=== PATIENT | male | born 1945 | race Caucasian/White ===

== ENCOUNTER 2020-10-18 08:00 | Outpatient (RCR) | payer MEDICARE, OTHER | END 2020-10-21 | disposition home or self-care (01) | PROVIDERS: ATTEND Nurse Practitioner Family | DX: R22.31 Localized swelling, mass and lump, right upper limb (principal); I10 Essential (primary) hypertension; Z85.9 Personal history of malignant neoplasm, unspecified; Z87.19 Personal history of other diseases of the digestive system; Z98.890 Other specified postprocedural states ==

== ENCOUNTER 2020-11-01 07:59 | Outpatient (RCR) | payer MEDICARE, OTHER | END 2020-11-01 12:10 | disposition home or self-care (01) | PROVIDERS: ATTEND Nurse Practitioner Family | DX: I10 Essential (primary) hypertension (principal); K21.9 Gastro-esophageal reflux disease without esophagitis; Z85.9 Personal history of malignant neoplasm, unspecified; Z87.19 Personal history of other diseases of the digestive system; Z98.890 Other specified postprocedural states ==